=== PATIENT | female | born 1995 | race Caucasian/White ===

== ENCOUNTER 2021-01-08 16:47 | Outpatient (CLI) | payer SELFPAY ==
--- NOTE | ~2021-01-08 | US_ITS ---
US OB <=14 wk fetus w TV DATE: 01/08/2021 17:32 INDICATION: Vaginal bleeding TECHNIQUE: Real-time imaging and Doppler analysis COMPARISON: None FINDINGS: Diffuse measures 9.4 cm height, 6.4 cm AP and 7.1 cm transverse dimension. A live sandoval intrauterine gestation is identified. pole and yolk sac are identified. heart rate of 16 5 bpm. Zuehl-rump length averages 2.18 cm consistent with 8 weeks 6 days +/- 6 days estimated gestational ag e; LUIS CARLOS: 08/14/2021 No subchorionic hemorrhage is evident. Right ovary measures 6.9 x 4.3 x 5.4 cm, containing a 4.0 x 5.5 x 5.1 cm cyst. The left ovary measures 2.7 x 1.9 x 1.6 cm. IMPRESSION: Estimated gestational age is 8 weeks 6 days +/- 6 days; LUIS CARLOS: 08/14/2021 Reviewed, dictated and finalized at [facility]. Reviewed, dictated and finalized at [facility]. IMPRESSION: Estimated gestational age is 8 weeks 6 days +/- 6 days; LUIS CARLOS: [birth year]/14/19 22
== END 2021-01-08 16:48 | disposition home or self-care (01) ==
PROVIDERS: Visit Provider Obstetrics & Gynecology
DX: O26.851 Spotting complicating pregnancy, first trimester (principal); Z3A.08 8 weeks gestation of pregnancy
CPT/HCPCS: 76801; 76817